=== PATIENT | male | born 1970 | race Caucasian/White ===

== ENCOUNTER 2016-06-01 12:05 | Emergency (ER) | payer OTHER ==
[2016-06-01 12:19] VITALS: BP 152/97
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
[2016-06-01] MEDS ORDERED: Ketorolac INJ* 60 MG/2 ML VIAL IM ONE (14:12)
== END 2016-06-01 14:35 | disposition home or self-care (01) ==
LOC: UCEAST 12:05
DX: S16.1XXA Strain of muscle, fascia and tendon at neck level, initial encounter (principal); S46.919A Strain of unspecified muscle, fascia and tendon at shoulder and upper arm level, unspecified arm, initial encounter; V49.40XA Driver injured in collision with unspecified motor vehicles in traffic accident, initial encounter; Y93.89 Activity, other specified; Y92.415 Exit ramp or entrance ramp of street or highway as the place of occurrence of the external cause; Z87.891 Personal history of nicotine dependence
CPT/HCPCS: 96372; 99212; G0463; J1885

== ENCOUNTER 2016-11-30 14:26 | Emergency (ER) | payer SELFPAY ==
[2016-11-30 15:14] VITALS: BP 141/89
--- NOTE | 2016-11-30 16:07 | RAD ---
INDICATION: Left hip injury. COMPARISON: Correlation is made with a prior MRI of the hips study from June 23, 2015. TECHNIQUE: An AP view of the pelvis and frontal and lateral views of the left hip were obtained. FINDINGS: The bones are in normal alignment. No fracture is seen. Joint spaces appear maintained. IMPRESSION: NO EVIDENCE FOR FRACTURE, IF THE PATIENT'S SYMPTOMS PERSIST RECOMMEND FOLLOW-UP IMAGING.
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
== END 2016-11-30 16:25 | disposition home or self-care (01) ==
LOC: UCEAST 14:26
DX: M25.552 Pain in left hip (principal); R03.0 Elevated blood-pressure reading, without diagnosis of hypertension; Z87.891 Personal history of nicotine dependence
CPT/HCPCS: 99212; G0463

== ENCOUNTER 2017-04-10 06:15 | Day surgery (SDC) | payer BC ==
[~2017-04-10 06:15] MED LIST: Buffered Lidocaine 0.9% SYRIN* 5 ML/SYR SYRINGE ONE; DiMENhydriNATE IV* 50 MG/ML VIAL IV PUSH PRN; Famotidine IV* 10 MG/ML 2 ML (20 mg) IV ONE; Famotidine IV* 10 MG/ML 2 ML (20 mg) ONE; Morphine INJ* 2 MG/ML 1 ML CARPUJECT IV PRN; Naloxone* 0.4 MG/ML 1 ML VIAL IV PRN; PROCHLORPERAZINE INJ 5 MG/ML 2 ML VIAL IV PRN; Scopolamine 1.5 mg* PATCH TRANSDERM PRN
[2017-04-10] MEDS: Buffered Lidocaine 0.9% SYRIN* 5 ML/SYR SYRINGE INTRADERM ONE ×2 (06:27→06:29)
[2017-04-10] MEDS ORDERED: Oxymetazoline 0.05% NASAL SPR* 15 ML BTL ONE (07:11)
[2017-04-10] MEDS ORDERED: Bacitracin OINTMENT* 0.5% 0.5 oz TUBE ONE (07:12)
[2017-04-10] MEDS ORDERED: Lidocaine 4% TOPICAL* 50 ML TOP.SOLN ONE (07:12)
[2017-04-10] MEDS ORDERED: Lidocaine 1% MPF wEPI 200,000* 30 ML SDV ONE (07:12)
[2017-04-10] MEDS ORDERED: Midazolam* 1 MG/ML 10 ML VIAL (10 MG) ONE (07:32)
[2017-04-10] MEDS ORDERED: fentaNYL* 50 MCG/ML 2 ML VIAL (100 MCG VIAL) ONE ×2 (07:32→08:52)
[2017-04-10] MEDS ORDERED: KETAMINE HCL* 50 MG/ML 10 ML VIAL ONE (07:32)
[2017-04-10] MEDS: fentaNYL* 50 MCG/ML 2 ML VIAL (100 MCG VIAL) IV PRN ×3 (08:53→09:34)
[2017-04-10] MEDS ORDERED: oxyCODONE/Acetamin 5/325 MG* TAB ONE ×2 (09:18→09:50)
[2017-04-10] MEDS: oxyCODONE/Acetamin 5/325 MG* TAB PO PRN ×2 (09:19→09:51)
[2017-04-10 10:49] VITALS: BP 138/95
--- NOTE | 2017-04-10 20:57 | OP ---
DATE OF OPERATION: 04/10/17 - [facility] DATE OF : 70 SURGEON: Stanley Barlow MD. ANESTHESIA: Laryngeal mask airway anesthesia. PRE-OP DIAGNOSIS: Septal deviation, inferior turbinate hypertrophy. POST-OP DIAGNOSIS: Septal deviation, inferior turbinate hypertrophy. OPERATIVE PROCEDURE: Nasal septoplasty with bilateral inferior turbinate reduction with submucosal resection of the inferior turbinates bilaterally under laryngeal mask airway anesthesia. COMPLICATIONS: None. DISPOSITION: Good. SPECIMENS: None. ESTIMATED BLOOD LOSS: Minimum. DESCRIPTION OF PROCEDURE: The patient was taken to the operating room, placed in the supine position on the operating table. General anesthesia was induced and he was maintained with laryngeal mask airway anesthesia. His nose was packed bilaterally with cottonoids impregnated with oxymetazoline and 4% lidocaine. He was draped for the surgery. The packs were removed and his septum and inferior turbinates were injected with 1% lidocaine and with 1:200, 000 epinephrine. Hemitransfixion incision was made in the right anterior septum. Mucoperichondrial flap was raised. Bony cartilaginous junction was opened. Contralateral posterior mucoperiosteal flap was raised. The double action scissors were used to make a superior cut on the bony septum inferior to this, was removed with the Isi. Vernal knife was used to remove some of the anterior cartilage to create a window in the posterior-inferior aspect. This cartilage was removed and later morselized and placed back into the septum. Spurring along the maxillary crest was removed with the Isi. The morselized cartilage was placed. The hemitransfixion incision was closed with 4-0 simple interrupted chromic. A 4-0 gut quilting stitch was placed. Incisions were made in the anterior and inferior turbinates. The mucoperiosteal flap was raised with the Jody. The inferior turbinate debrider was inserted into this pocket and the submucosa was debrided. The turbinates were outfractured. Bacitracin ointment was smeared on magnetic splints. They were placed bilaterally and sutured in place with a single Prolene. The patient tolerated the procedure well. No complications, transferred to the recovery room in stable condition. [id number]/[facility] #: [id number] [facility] CENTERDaniela
[2017-04-13] MEDS ORDERED: Scopolamine PATCH Remove* 1 NOTE MISC PATCH OFF ONE (06:01)
== END 2017-04-10 10:53 | disposition home or self-care (01) ==
LOC: OR 06:15
PROVIDERS: ATTEND Otolaryngology
DX: J34.2 Deviated nasal septum (principal); J34.3 Hypertrophy of nasal turbinates; G47.33 Obstructive sleep apnea (adult) (pediatric); J35.8 Other chronic diseases of tonsils and adenoids; Z87.891 Personal history of nicotine dependence
CPT/HCPCS: A9270-GY; J2001; J2250; J3010

== ENCOUNTER 2019-01-18 14:45 | Emergency (ER) | payer BC ==
--- OUTSIDE RECORDS SUMMARY | 2019-01-18 15:15 | XMS REPORT | Continuity of Care Document ---
:1970 External Reference #:[id number] Author Name Octavio Jarvis MD Address [address] [place] [address] Care Team Providers Name Role Phone [facility] [place] - Diagnostic Care Team Information Binding [facility] Octavio Jarvis MD - Family Care Team Information Binding [facility] Medicine Problems Active Problems Provider Date Inflammatory spondylopathy Marian Gordon M.D. 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 Onset: 12/27/2015 Anxiety state Marian Gordon M.D. Onset: 12/27/2015 Hyperlipidemia Marian Gordon M.D. Onset: 12/27/2015 Obstructive sleep apnea syndrome Marian Gordon M.D. Onset: 12/24/2016 Social History Type Date Description Comments Sex Unknown ETOH Use Currently consumes alcohol 2-3 drinks a day Tobacco Use Start: Unknown End: Patient is a former smoker Unknown Smoking Status Reviewed: 12/10/18 Patient is a former smoker Allergies, Adverse Reactions, Alerts Description No Known Drug Allergies Medications Active Medications SIG Qnty Indications Ordering Provider Date Tramadol HCL take1 tablet as 60tabs M51.16 Octavio Jensen 08/21/2018 50mg needed for pain MD Matheus Tablets every 6 hours. Tizanidine HCL 1 tab by mouth 270tabs Octavio Jensen 06/06/2016 2mg three times a day MD Matheus Tablets as needed Pravastatin Sodium Take 1 Tablet By 90tabs E78.4 Octavio Jensen 10/07/2013 Mouth Every Day MD Matheus 40mg Tablets Adderall 1 by mouth twice Unknown 5mg Tablets a day as directed Lorazepam take 1/2 - 1 Unknown 0.5mg tablet by mouth Tablets daily as needed for anxiety maximum daily dose = one tablet Medications Administered in Office Medication SIG Qnty Indications Ordering Provider Date TB Intradermal Test Marian Gordon M.D. 11/30/2015 Injection TB Intradermal Test Marian Gordon M.D. 11/18/2015 Injection TB Intradermal Test Hiro Li M.D. 10/25/2014 Injection TB Intradermal Test Hiro Li M.D. 10/08/2014 Injection Immunizations CPT Code Status Date Vaccine Lot # [id number] Given 12/27/2015 Influenza Vac, Quadrivalent, Slit Virus, Im [id number] Given 11/18/2015 Hepatitis B Immunization, adult dosage, for [id number] intramuscular use 92726 Given 12/28/2014 Influenza Vac, [place], [place] [address] Given 12/13/2014 Hepatitis B Immunization, adult dosage, for [id number] intramuscular use 71412 Given 11/09/2014 MMR Virus Immunization [id number] Given 10/28/2014 Hepatitis B Immunization, adult dosage, for [id number] intramuscular use 60529 Given 06/15/2013 Tdap Tetanus, W Pertussis [id number] Vital Signs Date Vital Result Comment 12/10/2018 6:21pm BP Systolic 120 mmHg BP Diastolic 82 mmHg Heart Rate 84 /min Body Temperature 98.8 F Respiratory Rate 16 /min Height 68 inches 5'8" Weight 172.00 lb BMI (Body Mass Index) 26.1 kg/m2 08/21/2018 6:03pm BP Systolic 130 mmHg BP Diastolic 82 mmHg Heart Rate 98 /min Body Temperature 97.6 F Respiratory Rate 16 /min Height 68 inches 5'8" Weight 170.00 lb BMI (Body Mass Index) 25.8 kg/m2 Results Description No Information Available Procedures Description No Information Available Medical Devices Description No Information Available Encounters Type Date Location Provider Dx Diagnosis Office Visit 08/21/2018 Main Office Aubree Herrera, M51.16 Intervertebral disc 6:00p PA disorders w radiculopathy, lumbar region Assessments Date Code Description Provider 12/10/2018 Z00.00 Encounter for general adult medical Octavio Jarvis MD examination without abnormal findings 12/10/2018 M51.16 Intervertebral disc disorders with Octavio Jarvis MD radiculopathy, lumbar reg 08/21/2018 M51.16 Intervertebral disc disorders with REYNA Le radiculopathy, lumbar reg Plan of Treatment 12/10/2018 - Octavio Jarvis MDZ00.00 Encounter for general adult medical examination without abnormal findingsNew Labs:CBC Electronic-[facility], Ordered: 12/10/18Comp Metabolic-[facility], Ordered: 12/10/18Lipid Panel- [facility], Ordered: 12/10/18TS ([facility]), Ordered: M51.16 Intervertebral disc disorders with radiculopathy, lumbar regAllComments :Medication Management Patient Understands medications he's taking? Yes No Are there Barriersto Adherence? Yes No Has the patient been asked about herbal supplements and therapies, and OTC meds? Yes No Functional Status Description No Information Available Mental Status Description No Information Available Referrals Description No Information Available
[2019-01-18 15:25] VITALS: BP 149/109
--- NOTE | 2019-01-18 15:30 | UC ---
Skin Complaint HPI - HPI Summary HPI Summary: L arm pit and L breast swelling/redness that started 2 days ago on Fri. Did not have fever but feels like he is run down and that redness is getting worse. Somewhat tender. Took 2 doxy tabs at home. no relief. he states cat does sit on his chest a lot. - History of Current Complaint Chief Complaint: UCSkin Time Seen by Provider: 01/18/19 15:16 Stated Complaint: SKIN COMPLAINT Hx Obtained From: Patient Location: Discrete Aggravating Factor(s): Nothing Alleviating Factor(s): Nothing - Allergy/Home Medications Allergies/Adverse Reactions: Allergies Allergy/AdvReac Type Severity Reaction Status Date / Time No Known Allergies Allergy Verified 01/18/19 15:25 PMH/Surg Hx/FS Hx/Imm Hx - Additional Past Medical History Additional PMH: ADHD Previously Healthy: Yes Cardiovascular History: Cardiac Disease Other History Of: Negative For: HIV, Hepatitis B, Hepatitis C, Anticoagulant Therapy - Surgical History Surgical History: Yes Surgery Procedure, Year, and Place: appendectomy 2005 [place]. double inguinal hernia repair [address] [place] SEPTOPLASTY 05/2017. WISDOM TEETH - Family History Known Family History: Positive: Cardiac Disease Negative: Hypertension - Social History Alcohol Use: Daily Alcohol Amount: 2 CANS DAILY Substance Use Type: Other Substance Use Comment - Amount & Last Used: CBD/THC PRODUCTS Smoking Status (MU): Former Smoker Amount Used/How Often: 1 ppd for 6 months When Did the Patient Quit Smoking/Using Tobacco: 2009 Review of Systems All Other Systems Reviewed And Are Negative: Yes Constitutional: Positive: Fatigue. Negative: Fever, Chills Skin: Positive: Other - redness L axilla and breast. Negative: Rash, Bruising Gastrointestinal: Negative: Vomiting, Diarrhea, Nausea Neurological: Negative: Headache Physical Exam Triage Information Reviewed: Yes Appearance: Well-Appearing Vital Signs Reviewed: Yes Respiratory Exam: Normal Cardiovascular Exam: Normal Skin: Positive: Significant Lesion(s) - One small dime sized red muscogee in L axilla. a large red patch just beneath the L nipple measuring approx 8 cm long. Nipple shape has changed. Area is indurated and thick no fluctuance Course/Dx - Course Course Of Treatment: Acute L BREAST SWELLING AND THICKENING SKIN w/ erythema assoc. w/ L axilla red area. Two discrete red areas. Temp did start to rise while here and BP was elevated which was atypical for him. Concern is cellulitis vs. deep abscess. We wanted to start labs and get CT to r/o lymph node involvement and if it was a deep abscess how far in it went. He was sent to ED today. Dr. Reyna was able to talk to ED charge nurse to give reports. Pt was hesitant to go b/c he was unsure if the CT would even be done. Dr. Reyna was able to relay needed imaging to ED. Not tachycardic. - Differential Diagnoses - Skin Complaint Differential Diagnoses: Abscess, Local Allergic Reaction, Lymphadenitis, MRSA - Diagnoses Provider Diagnosis: Cellulitis Discharge ED - Sign-Out/Discharge Documenting (check all that apply): Patient Departure All imaging exams completed and their final reports reviewed: No Studies - Discharge Plan Condition: Good Disposition: HOME Forms: *Work Release Referrals: Octavio Jarvis MD [Primary Care Provider] - Additional Instructions: Our hope is that at the ED you will get a CT to rule out a true deep abscess and /or lymph node involvement. There they have finish antibiotic treatment. - Billing Disposition and Condition Condition: GOOD Disposition: Home - Attestation Statements Provider Attestation: I was available for consult. This patient was seen by the [facility]. The patient was presented to , seen and examined by me. Patient with left breast cellulitis / abscess. Brief physical exam: Left breast: Twice the size of right side. There is retracted nipple along with area of redness ( approx 8 cm x 8 cm )and tenderness surrounding the nipple and the area of the. Upon deep palpation it feels like a mass without any fluctuation. Superiorly to the nipple, there seems to be some fluctuation. There is also area of erythema in the left axilla( 2 cm x 2 cm) and the right axilla( 1 cm x 1 cm ) We discussed further management options including Rocephin injection and sending home on antibiotics and monitor for any worsening but given the possibility of a deep abscess and further worsening to sepsis. I recommend further evaluation with a CT scan and he expressed understanding. Patient needs additional testing, thus ER transfer advised and patient agrees. Report called to the ER charge nurse Missy [facility], advised provider of the history, physical examination, and duration of illness and need for imaging . -Fnu MD Maribell
== END 2019-01-18 15:56 | disposition home or self-care (01) ==
LOC: UCEAST 14:45
DX: L03.112 Cellulitis of left axilla (principal); F90.9 Attention-deficit hyperactivity disorder, unspecified type; Z87.891 Personal history of nicotine dependence; R53.83 Other fatigue
CPT/HCPCS: 99212; G0463

== ENCOUNTER 2019-01-18 16:07 | Emergency (ER) | payer BC ==
--- NOTE | 2019-01-18 16:49 | UC ---
- HPI Summary HPI Summary: The pt is a 48 yr old male presenting to [facility] c/o left breast cellulitis beginning 3 days [employer]. He states that he started noticed some gradually increasing warmth and erythema on his left breast around the areola. He notes that it may have been caused by his cat scratching him. He rates his current pain severity a 1/10. No aggravating or alleviating factors noted. He also reports some pain around the cellulitis area. - History of Current Complaint Hx Obtained From: Patient Breast Chief Complaint: Nipple, Breast, Left Onset/Duration: Started Days Ago Timing: Constant, Lasting Days Breast Associated Signs/Symptoms: Redness, Warmth - Allergy/Home Medications Allergies/Adverse Reactions: Allergies Allergy/AdvReac Type Severity Reaction Status Date / Time No Known Allergies Allergy Verified 01/18/19 15:25 PMH/Surg Hx/FS Hx/Imm Hx Other History Of: Negative For: HIV, Hepatitis B, Hepatitis C, Anticoagulant Therapy - Surgical History Surgical History: Yes Surgery Procedure, Year, and Place: appendectomy 2005 [place]. double inguinal hernia repair 1996 [place]. SEPTOPLASTY 05/2017. WISDOM TEETH - Family History Known Family History: Positive: Cardiac Disease Negative: Hypertension - Social History Alcohol Use: Daily Alcohol Amount: 2 CANS DAILY Substance Use Type: Other Substance Use Comment - Amount & Last Used: CBD/THC PRODUCTS Smoking Status (MU): Former Smoker Amount Used/How Often: 1 ppd for 6 months When Did the Patient Quit Smoking/Using Tobacco: 2009 Review of Systems All Other Systems Reviewed And Are Negative: Yes Constitutional: Negative: Fever Skin: Positive: Other - painful cellulitis on left breast with erythema and warmth Physical Exam - Summary Physical Exam Summary: Constitutional: Well-developed, Well-nourished, Alert. (-) Distressed Skin: Warm, Dry, Area of erythema an tender surround the areola, Ultrasound shows no drainable abscess HENT: Normocephalic; Atraumatic Eyes: Conjunctiva normal Neck: Musculoskeletal ROM normal neck. (-) JVD, (-) Stridor, (-) Tracheal deviation Cardio: Rhythm regular, rate normal, Heart sounds normal; Intact distal pulses; Radial pulses are 2+ and symmetric. (-) Murmur Pulmonary/Chest wall: Effort normal. (-) Respiratory distress, (-) Wheezes, (-) Rales Abd: Soft, (-) tenderness, (-) Distension, (-) Guarding, (-) Rebound Musculoskeletal: (-) Edema Lymph: (-) Cervical adenopathy Neuro: Alert, Oriented x3 Psych: Mood and affect Normal Triage Information Reviewed: Yes Vital Signs: Initial Vital Signs Temp 98.5 F 01/18/19 16:16 Pulse 85 01/18/19 16:16 Resp 16 01/18/19 16:16 BP 164/107 01/18/19 16:16 Pulse Ox 98 01/18/19 16:16 Vital Signs Reviewed: Yes Procedures - Sedation Patient Received Moderate/Deep Sedation with Procedure: No Re-Evaluation - Re-Evaluation First Eval Re-Evaluation Time: 16:44 Comment: Pt continues to be tachycardic after 3 liters of fluid, motrin, and Tylenol. Breast Pain Course/Dx - Course Course Of Treatment: Patient is here with erythema surrounding his left areole and axillary lymphadenopathy bilaterally. Patient's overall well-appearing with no evidence of fever or sepsis. Patient at [facility] showed no drainable abscess. Patient is likely suffering from a simple cellulitis. Patient started on doxycycline by his doctor sent him here and was started on Keflex for myself for double coverage. Patient did bring up his cat and states it claws on his chest periodically. Patient has no known cat scratches that this could represent Scratch fever. Patient was encouraged off his PCP if this is not go away for possible antibiotic change. Patient also was made aware that he is make sure this clears in case this is breast cancer. - Diagnoses Provider Diagnoses: Cellulitis of breast of male Discharge ED - Sign-Out/Discharge Documenting (check all that apply): Patient Departure - discharge - Discharge Plan Condition: Stable Disposition: HOME Prescriptions: Cephalexin CAP* [Keflex CAP*] 500 mg PO TID 7 Days #21 cap Patient Education Materials: Cellulitis (ED) Referrals: Octavio Jarvis MD [Primary Care Provider] - 3 Days Additional Instructions: Please return to the ED if the area on your left breast starts feeling like an abscess as we discussed in the room. PLEASE RETURN TO EMERGENCY DEPARTMENT FOR ANY NEW OR WORSENING SYMPTOMS. Please follow up with your primary care physician. Please make all follow-ups in 1-3 days unless I advise you otherwise. - Billing Disposition and Condition Condition: STABLE Disposition: Home - Attestation Statements Document Initiated by Scribe: Yes Documenting Scribe: Lauri Milian Provider For Whom Scribe is Documenting (Include Credential): Santos Pichardo MD Scribe Attestation: I, Lauri Milian, scribed for Santos Pichardo MD on 01/18/19 at 1823. Scribe Documentation Reviewed: Yes Provider Attestation: The documentation as recorded by the scribe, Lauri Milian accurately reflects the service I personally performed and the decisions made by me, Santos Pichardo MD Status of Scribe Document: Viewed
[2019-01-18 16:56] VITALS: BP 158/102
== END 2019-01-18 16:50 | disposition home or self-care (01) ==
LOC: ED 16:07
DX: N61.0 Mastitis without abscess (principal); R59.1 Generalized enlarged lymph nodes; Z87.891 Personal history of nicotine dependence; Z79.899 Other long term (current) drug therapy
CPT/HCPCS: 99282

== ENCOUNTER 2019-05-05 20:07 | Emergency (ER) | payer BC ==
--- NOTE | 2019-05-05 20:45 | UC ---
FLU HPI - HPI Summary HPI Summary: 49 yo male presents with flu-like symptoms. 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 His daughter tested positive for the flu last week and his had flu symptoms 3-4 days ago. He did get a flu shot this year. Has been taking nyquill OTC with good relief. Denies rash, SOB, chest pain, abdominal pain, n/v. - History of Current Complaint Stated Complaint: FEVER COUGH Time Seen by Provider: 05/05/19 20:44 Hx Obtained From: Patient Onset/Duration: Sudden Onset Severity Currently: Mild Severity Initially: Mild Pain Intensity: 3 Pain Scale Used: 0-10 Numeric - Allergy/Home Medications Allergies/Adverse Reactions: Allergies Allergy/AdvReac Type Severity Reaction Status Date / Time No Known Allergies Allergy Verified 05/05/19 20:48 Home Medications: Home Medications Lisinopril [Zestril] 10 mg PO DAILY 05/05/19 [History Confirmed 05/05/19] PMH/Surg Hx/FS Hx/Imm Hx - Additional Past Medical History Additional PMH: ADHD Endocrine History: Dyslipidemia Other History Of: Negative For: HIV, Hepatitis B, Hepatitis C, Anticoagulant Therapy - Surgical History Surgical History: Yes Surgery Procedure, Year, and Place: appendectomy 2005 [place]. double inguinal hernia repair 1996 [place]. SEPTOPLASTY 05/2017. WISDOM TEETH - Family History Known Family History: Positive: Cardiac Disease Negative: Hypertension - Social History Lives: With Family Alcohol Use: Weekly Alcohol Amount: 7 DRINKS Substance Use Type: None Substance Use Comment - Amount & Last Used: medical marijuana rx'd for pt Smoking Status (MU): Former Smoker Amount Used/How Often: 1 ppd for 6 months When Did the Patient Quit Smoking/Using Tobacco: 2009 Review of Systems All Other Systems Reviewed And Are Negative: No Constitutional: Positive: Fever, Fatigue, Other - Body aches Skin: Positive: Negative Eyes: Positive: Negative ENT: Positive: Negative Respiratory: Positive: Cough Cardiovascular: Positive: Negative Gastrointestinal: Positive: Negative Neurological: Positive: Negative Psychological: Positive: Negative Physical Exam - Summary Physical Exam Summary: GENERAL: NAD. WDWN. No pain distress. SKIN: No rashes, sores, lesions, or open wounds. HEENT: Head: AT/NC Eyes: EOM intact. Conjunctiva clear without inflammation or discharge. Ears: Hearing grossly normal. TMs intact, no bulging, erythema, or edema. Nose: Nasal mucosa pink and moist. NTTP maxillary and frontal sinus. Throat: Posterior oropharynx without exudates, erythema, or tonsillar enlargement. Uvula midline. NECK: Supple. Nontender. No lymphadenopathy. CHEST: CTAB. No r/r/w. No accessory muscle use. Breathing comfortably and in no distress. CV: RRR. Pulses intact. Cap refill <2seconds NEURO: Alert. PSYCH: Age appropriate behavior. Triage Information Reviewed: Yes Vital Signs: Vital Signs: Temp Pulse Resp BP Pulse Ox 100.2 F 93 16 134/86 98 05/05/19 20:43 05/05/19 20:43 05/05/19 20:43 05/05/19 20:43 05/05/19 20:43 Laboratory Tests 05/05/19 21:11 Influenza A (Rapid) Positive A Vital Signs Reviewed: Yes Flu Course/Dx - Course Course Of Treatment: POC flu positive. Rx for tamiflu and zofran. Provided with precautionary leave form through [facility] for out of work 7 days since onset of symptoms (yesterday). Out through 05/11/2019. - Differential Dx/Diagnosis Provider Diagnosis: Influenza Discharge ED - Sign-Out/Discharge Documenting (check all that apply): Patient Departure All imaging exams completed and their final reports reviewed: No Studies - Discharge Plan Condition: Stable Disposition: HOME Prescriptions: Ondansetron ODT TAB* [Zofran 4 MG Odt TAB*] 4 mg PO Q8H PRN #9 tab.odt PRN Reason: Nausea Oseltamivir CAP* [Tamiflu CAP*] 75 mg PO BID #10 cap Patient Education Materials: Influenza (ED) Referrals: Octavio Jarvis MD [Primary Care Provider] - Additional Instructions: Most people with the flu recover within one to two weeks without treatment. However, serious complications of the flu can occur. Go to the ER immediately if you: -- You feel short of breath or have trouble breathing -- You have pain or pressure in your chest or stomach -- You have signs of being dehydrated, such as dizziness when standing or not passing urine -- You feel confused -- You cannot stop vomiting or you cannot drink enough fluids There are several groups of people who are at increased risk for flu complications. These include women, young children (<5 years of age and especially <2 years of age), people older than 65 years of age, and people with certain diseases such as chronic lung disease (such as asthma), heart disease, diabetes, immunosuppressing conditions (such as HIV infection or transplantation), and some other diseases. Treat symptoms Treating the symptoms of influenza can help you to feel better but will not make the flu go away faster. -- Rest until the flu is fully resolved, especially if the illness has been severe. -- Fluids Drink enough fluids so that you do not become dehydrated. One way to weight and balance control agent if you are drinking enough is to look at the color of your urine. Normally, urine should be light yellow to nearly colorless. If you are drinking enough, you should pass urine every three to five hours. -- Acetaminophen (sample brand name: Tylenol) can relieve fever, headache, and muscle aches. Aspirin and medicines that include aspirin (eg, bismuth subsalicylate [sample brand name: Pepto-Bismol]) are not recommended for children under 18 because aspirin can lead to a serious disease called Jose A syndrome. -- Cough medicines are not usually helpful; cough usually resolves without treatment. We do not recommend cough or cold medicine for children under age 6 years. Antiviral treatment Antiviral medicines can be used to treat or prevent influenza. When used as a treatment, the medicine does not eliminate flu symptoms, although it can reduce the severity and duration of symptoms by about one day. Not every person with influenza needs an antiviral medicine, but some people do; the decision is based upon several factors. If you are severely ill and/or have risk factors for developing complications of influenza, you will need an antiviral agent. People who are only mildly ill and have no risk factors for complications usually do not need to be treated with antiviral medication. - Billing Disposition and Condition Condition: STABLE Disposition: Home
[2019-05-05 20:48] VITALS: BP 134/86
[2019-05-05 21:19] LABS: Influenza A Molecular POSITIVE (Negative)
[2019-05-05] MEDS ORDERED: Ondansetron ODT TAB* 4 MG SL ONE (21:22)
== END 2019-05-05 21:33 | disposition home or self-care (01) ==
LOC: UCEAST 20:07
DX: J11.1 Influenza due to unidentified influenza virus with other respiratory manifestations (principal); F90.9 Attention-deficit hyperactivity disorder, unspecified type; Z87.891 Personal history of nicotine dependence
CPT/HCPCS: 99212; A9270-GY; G0463